=== PATIENT | male | born 1930 | race Two or more races ===

== ENCOUNTER 2020-08-28 08:19 | Outpatient (CLI) | payer OTHER | END 2020-08-28 11:11 | disposition home or self-care (01) | LOC: PPH VACUNA 08:19 | PROVIDERS: ATTEND Emergency Medicine Pediatric Emergency Medicine | DX: Z23 Encounter for immunization (principal) ==

== ENCOUNTER → 2020-09-18 07:00 | Outpatient (CLI) | payer OTHER | END | disposition home or self-care (01) | LOC: PPH VACUNA 07:00 | PROVIDERS: ATTEND Emergency Medicine Pediatric Emergency Medicine | DX: Z23 Encounter for immunization (principal) ==

== ENCOUNTER 2020-12-03 16:20 | Emergency (ER) | payer OTHER ==
[~2020-12-03] VITALS: Ht 172.7 cm; Wt 79.4 kg
[2020-12-03] MEDS ORDERED: PAROXETINE HCL40 MG PO (16:39)
[2020-12-03] MEDS ORDERED: CLARITIN10 M1 PO (16:39)
[2020-12-03] MEDS ORDERED: ZESTRIL20 MG PO (16:39)
[2020-12-03] MEDS ORDERED: SYNTHROID75 MCG PO (16:39)
[2020-12-03] MEDS ORDERED: VITAMIN D310 MC4 PO (16:40)
[2020-12-03] MEDS ORDERED: VITAMIN C100 MG PO (16:40)
[2020-12-03] MEDS ORDERED: ZOCOR40 MG PO (16:40)
[2020-12-03] MEDS ORDERED: [UNRECOGNIZED DRUG - OTHER] IH (22:13)
[2020-12-03] MEDS ORDERED: AZITHROMYCIN500 MG PO (22:13)
[2020-12-03] MEDS ORDERED: LEVALBUTER0.63 MG/3 IH (22:13)
[2020-12-03] MEDS ORDERED: ACETYLCYST200 MG/1 M IH (22:13)
== END 2020-12-03 22:23 | disposition home or self-care (01) ==
LOC: ER 16:20
DX: J47.9 Bronchiectasis, uncomplicated (principal); J98.11 Atelectasis; R09.02 Hypoxemia; R06.02 Shortness of breath; Z03.818 Encounter for observation for suspected exposure to other biological agents ruled out